=== PATIENT | male | born 1945 | race Caucasian/White ===

== ENCOUNTER → 2018-03-30 | Outpatient (CLI) | payer OTHER ==
[~2018-03-30] MED LIST: ASPIR 8181 MG PO; CHLORTHALIDONE25 MG PO; COZAAR 50 MG TA50 M2 PO; PLAVIX 75 MG TA75 M1 PO; SIMVASTATIN40 MG PO
== END ==
LOC: M.RAD 13:00
DX: M25.512 Pain in left shoulder (principal)